=== PATIENT | male | born 1970 | race Two or more races ===

== ENCOUNTER 2018-01-14 08:31 | Emergency (ER) | payer OTHER ==
[~2018-01-14] VITALS: Ht 152.4 cm; Wt 72.6 kg
[2018-01-14] MEDS ORDERED: LIDOCAINE WITH 8.4% SOD BICARB 3 ML DISP.SYRIN. INJ ONE (08:45)
[2018-01-14] MEDS ORDERED: DIPHTH,PERTUSS(ACELL),TET TOX 0.5 ML DISP.SYRIN. VAX IM ONE (08:45)
--- NOTE | 2018-01-14 08:55 | PHYS DOC ---
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 Patient has a avulsion laceration. Review of Systems Review of Systems Constitutional: Denies fever or chills [] Eyes: Denies change in visual acuity, redness, or eye pain [] HENT: Denies nasal congestion or sore throat [] Respiratory: Denies cough or shortness of breath [] Cardiovascular: No additional information not addressed in HPI [] GI: Denies abdominal pain, nausea, vomiting, bloody stools or diarrhea [] : Denies dysuria or hematuria [] Musculoskeletal: Denies back pain or Right ring finger joint pain and laceration [] Integument: Denies rash or skin lesions [] Neurologic: Denies headache, focal weakness or sensory changes [] Endocrine: Denies polyuria or polydipsia [] All other systems were reviewed and found to be within normal limits, except as documented in this note. Current Medications Current Medications Current Medications Medications (Trade) Dose Ordered Sig/Kelin Start Time Stop Time Status Last Admin Dose Admin Diphtheria/ Tetanus/Acell Pertussis (Boostrix) 0.5 ml ONCE ONCE 01/14/18 08:45 01/14/18 08:55 DC 01/14/18 09:14 0.5 ML Lidocaine/Sodium Bicarbonate (Buffered Lidocaine 1%) 6 ml 1X ONCE 01/14/18 08:45 01/14/18 08:55 DC 01/14/18 09:17 6 ML Allergies Allergies Allergies Coded Allergies Type Severity Reaction Last Updated Verified No Known Drug Allergies 01/14/18 No Physical Exam Physical Exam Constitutional: Well developed, well nourished, no acute distress, non-toxic appearance. [] HENT: Normocephalic, atraumatic, bilateral external ears normal, oropharynx moist, no oral exudates, nose normal. [] Eyes: PERRLA, EOMI, conjunctiva normal, no discharge. [] Neck: Normal range of motion, no tenderness, supple, no stridor. [] Cardiovascular:Heart rate regular rhythm, no murmur [] Lungs & Thorax: Bilateral breath sounds clear to auscultation [] Abdomen: Bowel sounds normal, soft, no tenderness, no masses, no pulsatile masses. [] Skin: Warm, dry, no erythema, no rash. [] Back: No tenderness, no CVA tenderness. [] Extremities: No tenderness, no cyanosis, no clubbing, ROM intact, no edema. Right ring finger laceration. [] Neurologic: Alert and oriented X 3, normal motor function, normal sensory function, no focal deficits noted. [] Psychologic: Affect normal, judgement normal, mood normal. [] Current Patient Data Vital Signs Vital Signs Date Time Temp Pulse Resp B/P (MAP) Pulse Ox O2 Delivery O2 Flow Rate FiO2 01/14/18 08:35 98.5 60 20 195/108 (137) 99 Room Air 98.5 EKG EKG [] Radiology/Procedures Radiology/Procedures Right hand Impressions: [facility] [address] [place] [address] IMAGING REPORT Signed PATIENT: PHIL PRUETT ACCOUNT: [id number] : 1970 LOCATION: ER AGE: 47 SEX: M EXAM STATUS: REG ER ORD. PHYSICIAN: GRIS OH APRN REASON: Laceration to right ring finger PROCEDURE: HAND RIGHT 3V Examination: 3 views of the right hand HISTORY: History of laceration to the ring finger COMPARISON: None available. The alignment of the metacarpophalangeal joints, interphalangeal joints grossly appears unremarkable Faint subtle densities identified in the soft tissue medial to the distal aspect of the middle phalanx of the ring finger could be soft tissue calcifications or tiny slivers of avulsion fractures or foreign bodies. Soft tissue laceration is identified in this region. IMPRESSION: 1. Faint subtle densities identified in the soft tissue medial to the distal aspect of the middle phalanx of the ring finger could be soft tissue calcifications or tiny slivers of avulsion fractures or foreign bodies. Soft tissue laceration is identified in this region. 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 Patient has a avulsion laceration. The laceration is V-shaped and is located on the distal phalange. Bleeding is controlled. Patient states he does need a tetanus. Patient will receive a Boostrix in the ED today. He is alert and oriented. Skin is pink warm and dry. Patient drive himself here. Patient works for [employer] which is where the laceration occurred. Patient rates his pain a 5 out of 10. Patient has no known drug allergies and states he only takes a cholesterol pill. Patient denies any drug use, alcohol or smoking. I examined and washed out the patients laceration with 100ml sterile water and Betadine. Ligament is visualized and is intact. Patients able to bend and straighten finger without problem. I also had Dr Banuelos take a look at the patient and he to visualized the intact ligament and there were no foreign bodies seen. I did do a digital block with buffering lidocaine and the patient tolerated well. Laceration Repair by me: Anesthesia: 1% lidocaine locally Location: Distal right ring finger Tendon/Joint/Nerves: No injury Foreign body: None detected after copious irrigation and exploration Technique: 11 stitches 3-0 Ethicon Simple Interrupted Sutures Complexity: No subcutaneous sutures/mucosal repair/edge excision Post Closure Length: 3cm Patient's bleeding was easily controlled in the department and there is no indication of anemia. No evidence of compartment syndrome, neurologic injury, vascular injury, open joint, tendon laceration, or foreign body. Patient is appropriate for outpatient follow up. 48 hour wound check. Scar minimization instructions given. [] Dragon Disclaimer Dragon Disclaimer This electronic medical record was generated, in whole or in part, using a voice recognition dictation system. Departure Departure Impression: Primary Impression: Laceration Disposition: 01 HOME, SELF-CARE Condition: STABLE Patient Instructions: Fingertip Laceration, Laceration Care, Adult Additional Instructions: Return to the ED or your primary care in 7 days to get the stitches removed. Also return for any signs of infection as discussed. Scripts Hydrocodone/Apap 5-325 (NORCO 5-325 TABLET) 1 Each Tablet 1 TAB PO PRN Q6HRS PRN for PAIN, #5 TAB 0 Refills Prov: GRIS OH APRN 01/14/18 Ibuprofen (IBUPROFEN) 600 Mg Tablet 600 MG PO PRN Q6HRS PRN for INFLAMMATION, #15 TAB Prov: GRIS OH APRN 01/14/18 GRIS OH APRN Jan 14, 2018 08:55
--- NOTE | 2018-01-14 09:47 | RAD ---
Examination: 3 views of the right hand HISTORY: History of laceration to the ring finger COMPARISON: None available. The alignment of the metacarpophalangeal joints, interphalangeal joints grossly appears unremarkable Faint subtle densities identified in the soft tissue medial to the distal aspect of the middle phalanx of the ring finger could be soft tissue calcifications or tiny slivers of avulsion fractures or foreign bodies. Soft tissue laceration is identified in this region. IMPRESSION: 1. Faint subtle densities identified in the soft tissue medial to the distal aspect of the middle phalanx of the ring finger could be soft tissue calcifications or tiny slivers of avulsion fractures or foreign bodies. Soft tissue laceration is identified in this region. Electronically signed by: Haroon Mcmullen MD (01/14/2018 9:44 AM) [id number]
[2018-01-14] MEDS ORDERED: HYDR-971 PO (10:09)
[2018-01-14] MEDS ORDERED: IBUP-1007 PO (10:09)
[2018-01-14 10:20] VITALS: BP 170/99
== END 2018-01-14 10:25 | disposition home or self-care (01) ==
LOC: ER 08:31
DX: S61.214A Laceration without foreign body of right ring finger without damage to nail, initial encounter (principal); W26.8XXA Contact with other sharp object(s), not elsewhere classified, initial encounter; Y93.89 Activity, other specified; Y92.89 Other specified places as the place of occurrence of the external cause; Y99.8 Other external cause status
CPT/HCPCS: 12002; 73130; 90471; 90715; 99284

== ENCOUNTER 2018-01-21 15:12 | Emergency (ER) | payer OTHER ==
[~2018-01-21] VITALS: Ht 154.9 cm; Wt 72.6 kg
[~2018-01-21 15:12] MED LIST: HYDR-971 PO; IBUP-1007 PO
[2018-01-21 16:08] VITALS: BP 142/84
--- NOTE | 2018-01-21 17:10 | PHYS DOC ---
Past Medical History Past Medical History: High Cholesterol Past Surgical History: No Surgical History Alcohol Use: Occasionally Drug Use: None Adult General Chief Complaint Chief Complaint: SUTURE/STAPLE REMOVAL [facility] Patient is a 47 year old male who presents with laceration repair he days ago to the right ring finger. Patient is here to get the stitches removed. The finger is swollen and slightly reddened but patient denies any pain. Patient states that this morning there was some purulent drainage from it. Patient no known drug allergies and denies any medical history. Review of Systems Review of Systems Constitutional: Denies fever or chills [] Eyes: Denies change in visual acuity, redness, or eye pain [] HENT: Denies nasal congestion or sore throat [] Respiratory: Denies cough or shortness of breath [] Cardiovascular: No additional information not addressed in HPI [] GI: Denies abdominal pain, nausea, vomiting, bloody stools or diarrhea [] : Denies dysuria or hematuria [] Musculoskeletal: Denies back pain or joint pain [] Integument: Laceration intact with suture. Reddened and swollen 2+. Drainage this AM. Denies rash or skin lesions [] Neurologic: Denies headache, focal weakness or sensory changes [] Endocrine: Denies polyuria or polydipsia [] All other systems were reviewed and found to be within normal limits, except as documented in this note. Allergies Allergies Allergies Coded Allergies Type Severity Reaction Last Updated Verified No Known Drug Allergies 01/14/18 No Physical Exam Physical Exam Constitutional: Well developed, well nourished, no acute distress, non-toxic appearance. [] HENT: Normocephalic, atraumatic, bilateral external ears normal, oropharynx moist, no oral exudates, nose normal. [] Eyes: PERRLA, EOMI, conjunctiva normal, no discharge. [] Neck: Normal range of motion, no tenderness, supple, no stridor. [] Cardiovascular:Heart rate regular rhythm, no murmur [] Lungs & Thorax: Bilateral breath sounds clear to auscultation [] Abdomen: Bowel sounds normal, soft, no tenderness, no masses, no pulsatile masses. [] Skin: Warm, dry, Right ring finger erythema and 2+ swelling, no rash. [] Back: No tenderness, no CVA tenderness. [] Extremities: No tenderness, no cyanosis, no clubbing, ROM intact, no edema. [] Neurologic: Alert and oriented X 3, normal motor function, normal sensory function, no focal deficits noted. [] Psychologic: Affect normal, judgement normal, mood normal. [] Current Patient Data Vital Signs Vital Signs Date Time Temp Pulse Resp B/P (MAP) Pulse Ox O2 Delivery O2 Flow Rate FiO2 01/21/18 16:08 98.6 80 20 142/84 (103) 96 Room Air 98.6 EKG EKG [] Radiology/Procedures Radiology/Procedures Right ring finger xray Impressions: [facility] [address] [place] [address] IMAGING REPORT Signed PATIENT: PHIL PRUETT ACCOUNT: [id number] : 1970 LOCATION: ER AGE: 47 SEX: M EXAM STATUS: REG ER ORD. PHYSICIAN: GRIS OH APRN REASON: POST LACERATION RING FINGER REPAIR X 8 DAYS. INFECTED PROCEDURE: HAND RIGHT 3V History: Post laceration ring finger. 8 days ago. Infection. Comparison: January 14, 2018. Findings: PA, lateral, and oblique views of the right hand. No acute fracture or dislocation is identified. No acute osseous abnormality is seen. The dorsal soft tissues of the 4th digit (ring finger) demonstrate presence of multiple radiodensities, could be debris or soft tissue calcifications. There is soft tissue swelling of the 4th digit. Impression: 1. No acute osseous abnormality identified. 2. Soft tissue swelling of the 4th digit. 3. Radiodensities involving the 4th digit, could be calcifications or foreign bodies. Electronically signed by: Elan Velasco MD (01/21/2018 5:05 PM) [id number] DICTATED and SIGNED BY: ELAN VELASCO MD DATE: 01/21/18 165 Course & Med Decision Making Course & Med Decision Making Patient is a 47 year old male who presents with laceration repair he days ago to the right ring finger. Patient is here to get the stitches removed. The finger is swollen and slightly reddened but patient denies any pain. Patient states that this morning there was some purulent drainage from it. Patient no known drug allergies and denies any medical history. Alert and oriented. I cannot get any drainage from the finger but it is swollen and slightly reddened but nonpainful to the patient. Patient denies any fever. Patient is afebrile here in the ED. Stitches are removed and Steri-Strips are placed only because of the swelling. Patient is placed on Keflex antibiotic and must follow up either here in the ED in 48 hours with his primary care within 48 hours. Patient denies any pain and he has a strong radial pulse and less than 3 second cap refill. The edges of the laceration are together intact approximated. Right ring finger x-ray shows 1. No acute osseous abnormality identified.2. Soft tissue swelling of the 4th digit.3. Radiodensities involving the 4th digit, could be calcifications or foreign bodies. As charted previously when the patient first came in for laceration, I did see this patient and so did Dr. Banuelos and we both personally lifted the skin flap backward and open and checked for a foreign body as on the first x-ray and had stated that there could possibly be a foreign body. The finger was irrigated with 100 mL of saline mixed with Betadine. There were no foreign bodies seen by me nor Dr. Banuelos and the finger laceration was thoroughly rinsed. All sutures are removed and Steri-Strips are placed. Patient is given again strict return to the ED within 48 hours or with his primary care provider iter within 48 hours for wound check. Dragon Disclaimer Dragon Disclaimer This electronic medical record was generated, in whole or in part, using a voice recognition dictation system. Departure Departure Impression: Primary Impression: Visit for suture removal Additional Impression: Wound infection Disposition: 01 HOME, SELF-CARE Referrals: NO PCP (PCP) Patient Instructions: Wound Infection Additional Instructions: Follow-up and here in the ED within 48 hours or with her primary care within 48 hours for a wound check to make sure it is getting better. Scripts Cephalexin (KEFLEX) 500 Mg Capsule 1 CAP PO BID, #14 CAP Prov: GRIS OH APRN 01/21/18 Problem Qualifiers GRIS OH APRN Jan 21, 2018 17:10
[2018-01-21] MEDS ORDERED: CEPH-264 PO (17:16)
== END 2018-01-21 17:41 | disposition home or self-care (01) ==
LOC: ER 15:12
DX: S61.214D Laceration without foreign body of right ring finger without damage to nail, subsequent encounter (principal); L08.9 Local infection of the skin and subcutaneous tissue, unspecified; Z48.02 Encounter for removal of sutures; E78.00 Pure hypercholesterolemia, unspecified; X58.XXXD Exposure to other specified factors, subsequent encounter
CPT/HCPCS: 73130; 99284

== ENCOUNTER 2018-01-23 15:57 | Emergency (ER) | payer OTHER ==
[~2018-01-23] VITALS: Ht 154.9 cm; Wt 72.6 kg
[~2018-01-23 15:57] MED LIST changes: +CEPH-264 PO
[2018-01-23 16:26] VITALS: BP 167/91
--- NOTE | 2018-01-23 16:33 | PHYS DOC ---
Past Medical History Past Medical History: High Cholesterol Past Surgical History: No Surgical History Alcohol Use: Occasionally Drug Use: None Adult General Chief Complaint Chief Complaint: WOUND RECHECK/SUTURE REMOVAL HPI HPI 27-year-old male presents for reevaluation of previously sutured laceration to the right ring finger. Patient was seen 2 days ago to have the sutures removed, it was noted that he had an infection to the wound, Steri-Strips were placed and patient was put on Keflex. He was to return in 48 hours for recheck of the wound. He reports it is starting to feel better, there is no drainage from the wound. He has kept it clean and dry. Review of Systems Review of Systems Constitutional: Denies fever or chills [] Eyes: Denies change in visual acuity, redness, or eye pain [] HENT: Denies nasal congestion or sore throat [] Respiratory: Denies cough or shortness of breath [] Cardiovascular: No additional information not addressed in HPI [] GI: Denies abdominal pain, nausea, vomiting, bloody stools or diarrhea [] : Denies dysuria or hematuria [] Integument: Denies rash or skin lesions [] All other systems were reviewed and found to be within normal limits, except as documented in this note. Allergies Allergies Allergies Coded Allergies Type Severity Reaction Last Updated Verified No Known Drug Allergies 01/14/18 No Physical Exam Physical Exam Constitutional: Well developed, well nourished, no acute distress, non-toxic appearance. [] Skin: Warm, dry Extremities: No tenderness, no cyanosis, no clubbing, ROM intact, RT RING FINGER DORSAL ASPECT LACERATION C STERI STRIPS IN PLACE, NO DRAINAGE, MILD EDEMA SURROUNDING WOUND, ROM INTACT, NO SAUSAGE DIGIT Neurologic: Alert and oriented X 3, normal motor function, normal sensory function, no focal deficits noted. [] Psychologic: Affect normal, judgement normal, mood normal. [] Current Patient Data Vital Signs Vital Signs Date Time Temp Pulse Resp B/P (MAP) Pulse Ox O2 Delivery O2 Flow Rate FiO2 01/23/18 16:26 98.2 74 14 167/91 (116) 97 Room Air 98.2 EKG EKG [] Radiology/Procedures Radiology/Procedures [] Course & Med Decision Making Course & Med Decision Making Pertinent Labs and Imaging studies reviewed. (See chart for details) [Wound of the right ring finger was evaluated, no evidence of tenosynovitis, patient is on Keflex, recommend continued antibiotics, continue cleaning the wound keeping it dry and follow-up with primary care doctor next week. Return to ER for new or worsening symptoms, patient verbalizes understanding of these discharge instructions.] Dragon Disclaimer Dragon Disclaimer This electronic medical record was generated, in whole or in part, using a voice recognition dictation system. Departure Departure Impression: Primary Impression: Encounter for re-check of laceration wound Disposition: HOME, SELF-CARE Condition: STABLE Referrals: NO PCP (PCP) Patient Instructions: Wound Check NISHANT SNOW CODIFIER Jan 23, 2018 16:33
== END 2018-01-23 16:36 | disposition home or self-care (01) ==
LOC: ER 15:57
DX: S61.214D Laceration without foreign body of right ring finger without damage to nail, subsequent encounter (principal); E78.00 Pure hypercholesterolemia, unspecified; X58.XXXD Exposure to other specified factors, subsequent encounter
CPT/HCPCS: 99281